=== PATIENT | male | born 1955 | race Asian ===

== ENCOUNTER 2017-04-19 14:47 | Inpatient (IN) | payer OTHER ==
[2017-04-19] VITALS (183 sets, daily range): BP systolic 160–168; BP diastolic 96–108; PULSE 95–99; TEMP 97.5; O2SAT 95–99
[~2017-04-19] VITALS: Ht 170.2 cm; Wt 81.8 kg
[2017-04-19] MEDS ORDERED: LEVEMIR FLEX100 U/ML SQ (15:20)
[2017-04-19] MEDS ORDERED: GLUCOPHAGE XR500 M1 PO (15:20)
[2017-04-19] MEDS ORDERED: GLUCOTROL XL5 MG/TAB PO (15:20)
[2017-04-19] MEDS ORDERED: BLOOD PRESSURE (15:21)
[2017-04-19 16:07] LABS: BASO # 0.1 (0.0-0.2); BASO % 0.4 % (0.0-2.0); EOS # 0.1 (0.0-0.7); EOS % 0.6 % (0-4.0); GRAN # 10.4 (1.4-6.5); GRAN % 77.6 % (42.2-75.2); HEMATOCRIT 44.8 % (42.0-52.0); LYMPH # 2.1 (1.2-3.4); LYMPH % 15.7 % (20.0-51.0); MEAN CELL VOLUME 81 fl (80.0-100.0); MEAN CORPUSCULAR HEMOGLOBIN 29 pg (27.0-31.0); MEAN CORPUSCULAR HGB CONC 36 g/dl (33.0-37.0); MEAN PLATELET VOLUME 11.2 fl (7.4-10.4); MONO # 0.7 (0.1-0.6); MONO % 5.3 % (1.7-9.3); PLATELET COUNT 247 K/mm3 (130-400); RED BLOOD COUNT 5.52 M/mm3 (4.20-5.60); REDCELL DISTRIBUTION WIDTH-CV 12.2 % (11.5-14.5); WHITE BLOOD COUNT 13.4 K/mm3 (4.8-10.8)
[2017-04-19 16:37] LABS: ADJUSTED CALCIUM 9.8 mg/dL (8.4-10.2); ALBUMIN 4.2 gm/dL (3.5-5.0); CREATININE, serum 0.71 mg/dL (0.66-1.25); POTASSIUM 4.5 mmol/L (3.4-5.0); TOTAL PROTEIN 7.4 gm/dL (6.4-8.2)
[2017-04-19 16:52] LABS: TROPONIN-I 8.02 ng/mL (0.000-0.034)
[2017-04-19 17:32] LABS: PROTHROMBIN TIME 10.5 SECONDS (9.7-12.8)
[2017-04-19 17:35] LABS: PARTIAL THROMBOPLASTIN TIME 33.5 SECONDS (26.0-37.0)
[2017-04-19] MEDS ORDERED: MICARDIS40 MG PO (18:39)
[2017-04-19] MEDS ORDERED: [UNRECOGNIZED DRUG - OTHER] PO (18:42)
[2017-04-19 23:44] LABS: PH 5 (5-8); SQUAMOUS EPITHELIAL None Seen /hpf; URINE APPEARANCE Hazy; URINE BACTERIA None Seen /hpf; URINE BILIRUBIN Negative (NEGATIVE); URINE BLOOD Negative (NEGATIVE); URINE COLOR Yellow; URINE GLUCOSE 3+ (NEGATIVE); URINE KETONE 1+ (NEGATIVE); URINE RBC 0-2 /hpf; URINE UROBILINOGEN Negative (NEGATIVE); URINE WBC 0-2 /hpf
[2017-04-20] VITALS (764 sets, daily range): BP systolic 122–138; BP diastolic 74–86; PULSE 67–80; TEMP 96.8–98; O2SAT 95–100
[2017-04-20 04:11] LABS: BASO # 0.1 (0.0-0.2); BASO % 0.7 % (0.0-2.0); EOS # 0.1 (0.0-0.7); EOS % 1.5 % (0-4.0); GRAN # 5.1 (1.4-6.5); GRAN % 60.2 % (42.2-75.2); LYMPH # 2.5 (1.2-3.4); LYMPH % 29.7 % (20.0-51.0); MEAN CELL VOLUME 82 fl (80.0-100.0); MEAN CORPUSCULAR HGB CONC 36 g/dl (33.0-37.0); MEAN PLATELET VOLUME 10.7 fl (7.4-10.4); MONO # 0.6 (0.1-0.6); MONO % 7.5 % (1.7-9.3); PLATELET COUNT 186 K/mm3 (130-400); RED BLOOD COUNT 4.32 M/mm3 (4.20-5.60); REDCELL DISTRIBUTION WIDTH-CV 12.4 % (11.5-14.5); WHITE BLOOD COUNT 8.4 K/mm3 (4.8-10.8)
[2017-04-20 04:12] LABS: HEMATOCRIT 35.4 % (42.0-52.0); HEMOGLOBIN 12.7 g/dl (13.5-18.0); MEAN CORPUSCULAR HEMOGLOBIN 29 pg (27.0-31.0)
[2017-04-20 04:17] LABS: INR 1.4 (0.8-3.0); PROTHROMBIN TIME 15.5 SECONDS (9.7-12.8)
[2017-04-20 04:21] LABS: ADJUSTED CALCIUM 8.8 mg/dL (8.4-10.2); ALBUMIN 2.7 gm/dL (3.5-5.0); BILIRUBIN,TOTAL 0.6 mg/dL (0.0-1.0); CALCIUM 7.8 mg/dL (8.4-10.2); CREATININE, serum 0.6 mg/dL (0.66-1.25); POTASSIUM 3.3 mmol/L (3.4-5.0); TOTAL PROTEIN 5.3 gm/dL (6.4-8.2)
[2017-04-20 04:40] LABS: TROPONIN-I 9.29 ng/mL (0.000-0.034)
[2017-04-20 05:05] LABS: PARTIAL THROMBOPLASTIN TIME > 400.0 SECONDS (26.0-37.0)
[2017-04-20 13:00] LABS: CKMB-SO 14.5 ng/mL (0.0-7.2)
[2017-04-21] VITALS (151 sets, daily range): BP systolic 131–137; BP diastolic 78–97; PULSE 68–77; TEMP 97–98.1; O2SAT 95–100
[2017-04-21 06:23] LABS: HEMATOCRIT 42.8 % (42.0-52.0); MEAN CELL VOLUME 83 fl (80.0-100.0); MEAN CORPUSCULAR HEMOGLOBIN 29 pg (27.0-31.0); MEAN CORPUSCULAR HGB CONC 35 g/dl (33.0-37.0); MEAN PLATELET VOLUME 10.6 fl (7.4-10.4); PLATELET COUNT 207 K/mm3 (130-400); RED BLOOD COUNT 5.19 M/mm3 (4.20-5.60); REDCELL DISTRIBUTION WIDTH-CV 12.4 % (11.5-14.5)
[2017-04-21 06:25] LABS: HEMOGLOBIN 14.9 g/dl (13.5-18.0)
[2017-04-21 06:38] LABS: CALCIUM 9.3 mg/dL (8.4-10.2); CREATININE, serum 0.66 mg/dL (0.66-1.25); POTASSIUM 3.7 mmol/L (3.4-5.0)
[2017-04-21] MEDS ORDERED: NORVASC 5MG5 MG/TAB PO (10:26)
[2017-04-21] MEDS ORDERED: COREG12.5 MG PO (10:26)
[2017-04-21] MEDS ORDERED: ASPIRIN 81M81 MG/TA2 PO (10:28)
[2017-04-21] MEDS ORDERED: PLAVIX 75MG TAB75 MG PO (10:30)
[2017-04-21] MEDS ORDERED: LIPITOR 40MG TA40 MG PO (10:30)
[2017-04-21] MEDS ORDERED: GLUCOPHAGE1000 MG PO (10:30)
[2017-04-21] MEDS ORDERED: MICARDIS40 MG PO (10:35)
== END 2017-04-21 12:49 | disposition home or self-care (01) | DRG 247 ==
LOC: COL.ER 14:47 → ICU 17:21
PROVIDERS: Emergency Medicine; Family Medicine; Internal Medicine; Internal Medicine Cardiovascular Disease
PROC: 027034Z Dilation of Coronary Artery, One Artery with Drug-eluting Intraluminal Device, Percutaneous Approach (ICD-10-PCS; principal; 2017-04-20)
PROC: B2111ZZ Fluoroscopy of Multiple Coronary Arteries using Low Osmolar Contrast (ICD-10-PCS; 2017-04-20)
PROC: 4A023N6 Measurement of Cardiac Sampling and Pressure, Right Heart, Percutaneous Approach (ICD-10-PCS; 2017-04-20)
DX: I21.4 Non-ST elevation (NSTEMI) myocardial infarction (principal); E87.1 Hypo-osmolality and hyponatremia; E86.1 Hypovolemia; E11.9 Type 2 diabetes mellitus without complications; I10 Essential (primary) hypertension; E78.5 Hyperlipidemia, unspecified; Z79.4 Long term (current) use of insulin
CPT/HCPCS: 99223-AI; 99233-AI; 99239; C1725; C1769; C1874; C1887; C9600; J0583; J1644; J1650; J1815; J2250; J3010; J7030

== ENCOUNTER 2019-08-03 23:48 | Emergency (ER) | payer MEDICAID ==
[~2019-08-03] VITALS: Ht 170.2 cm; Wt 86.4 kg
[~2019-08-03 23:48] MED LIST: ASPIRIN 81M81 MG/TA2 PO; BLOOD PRESSURE; COREG12.5 MG PO; GLUCOPHAGE XR500 M1 PO; GLUCOPHAGE1000 MG PO; GLUCOTROL XL5 MG/TAB PO; LEVEMIR FLEX100 U/ML SQ; LIPITOR 40MG TA40 MG PO; MICARDIS40 MG PO; NORVASC 5MG5 MG/TAB PO; PLAVIX 75MG TAB75 MG PO; [UNRECOGNIZED DRUG - OTHER] PO
[2019-08-04 00:06] LABS: ARTERIAL BLD GAS O2 SATURATION 92.3 % (92-100); ARTERIAL BLD GAS TCO2 CT 18.7; ARTERIAL BLOOD GAS BASE EXCESS -7.6 (-2-2); ARTERIAL BLOOD GAS HCO3 17.6 meq/L (22-26); ARTERIAL BLOOD GAS PCO2 35.5 mmHg (35-45); ARTERIAL BLOOD GAS PO2 69.3 mmHg (80-100); ARTERIAL BLOOD GAS pH 7.31 (7.35-7.45)
[2019-08-04 00:06] LABS: BASO # 0.1 (0.0-0.2); BASO % 0.5 % (0.0-2.0); EOS # 0.3 (0.0-0.7); EOS % 1.5 % (0-4.0); GRAN # 16.2 (1.4-6.5); GRAN % 75.7 % (42.2-75.2); HEMATOCRIT 48.6 % (42.0-52.0); HEMOGLOBIN 16.9 g/dl (13.5-18.0); LYMPH % 18.7 % (20.0-51.0); MEAN CELL VOLUME 83 fl (80.0-100.0); MEAN CORPUSCULAR HEMOGLOBIN 29 pg (27.0-31.0); MEAN CORPUSCULAR HGB CONC 35 g/dl (33.0-37.0); MEAN PLATELET VOLUME 10.7 fl (7.4-10.4); MONO # 0.7 (0.1-0.6); MONO % 3.1 % (1.7-9.3); PLATELET COUNT 306 K/mm3 (130-400); RED BLOOD COUNT 5.83 M/mm3 (4.20-5.60); REDCELL DISTRIBUTION WIDTH-CV 12.8 % (11.5-14.5)
[2019-08-04 00:10] LABS: INR 0.9 (0.8-3.0); PROTHROMBIN TIME 9.9 SECONDS (9.7-12.8)
[2019-08-04 00:12] LABS: PARTIAL THROMBOPLASTIN TIME 33.5 SECONDS (26.0-37.0)
[2019-08-04 00:15] LABS: ALBUMIN 4.2 gm/dL (3.5-5.0); BILIRUBIN,TOTAL 0.3 mg/dL (0.0-1.0); CALCIUM 9.6 mg/dL (8.4-10.2); CREATININE, serum 0.87 (0.66-1.25); POTASSIUM 4.3 mmol/L (3.4-5.0); TOTAL PROTEIN 7.7 gm/dL (6.4-8.2)
[2019-08-04 00:25] LABS: TROPONIN-I 0.024 ng/mL (0.000-0.035)
[2019-08-04 01:10] VITALS: BP 154/91; PULSE 84
== END 2019-08-04 01:10 | disposition short-term general hospital (02) ==
LOC: COL.ER 23:48
PROVIDERS: Emergency Medicine
DX: I21.3 ST elevation (STEMI) myocardial infarction of unspecified site (principal); E11.9 Type 2 diabetes mellitus without complications; I10 Essential (primary) hypertension; E78.5 Hyperlipidemia, unspecified; Z98.890 Other specified postprocedural states; Z95.5 Presence of coronary angioplasty implant and graft; Z79.82 Long term (current) use of aspirin; Z79.4 Long term (current) use of insulin
CPT/HCPCS: J1644; J3101; J7030

== ENCOUNTER 2019-08-28 10:32 | Inpatient (IN) | payer MEDICARE ==
[~2019-08-28] VITALS: Ht 170.2 cm; Wt 86.9 kg
[2019-08-28] VITALS (394 sets, daily range): BP systolic 128–164; BP diastolic 72–95; PULSE 74–87; TEMP 97.8–98.2; O2SAT 90–99
[2019-08-28 10:56] LABS: BASO # 0.1 (0.0-0.2); BASO % 0.4 % (0.0-2.0); EOS # 0.2 (0.0-0.7); EOS % 1.6 % (0-4.0); HEMATOCRIT 41.2 % (42.0-52.0); HEMOGLOBIN 13.8 g/dl (13.5-18.0); LYMPH # 1.5 (1.2-3.4); LYMPH % 9.8 % (20.0-51.0); MEAN CELL VOLUME 85 fl (80.0-100.0); MEAN CORPUSCULAR HEMOGLOBIN 28 pg (27.0-31.0); MEAN CORPUSCULAR HGB CONC 34 g/dl (33.0-37.0); MEAN PLATELET VOLUME 10.9 fl (7.4-10.4); MONO # 0.6 (0.1-0.6); MONO % 3.7 % (1.7-9.3); PLATELET COUNT 243 K/mm3 (130-400); RED BLOOD COUNT 4.87 M/mm3 (4.20-5.60); REDCELL DISTRIBUTION WIDTH-CV 12.8 % (11.5-14.5)
[2019-08-28 10:57] LABS: PROTHROMBIN TIME 11.4 SECONDS (9.7-12.8)
[2019-08-28 11:00] LABS: PARTIAL THROMBOPLASTIN TIME 34.5 SECONDS (26.0-37.0)
[2019-08-28 11:03] LABS: ALBUMIN 3.9 gm/dL (3.5-5.0); BILIRUBIN,TOTAL 0.5 mg/dL (0.0-1.0); CALCIUM 9.2 mg/dL (8.4-10.2); CREATININE, serum 0.9 (0.66-1.25); POTASSIUM 4.7 mmol/L (3.4-5.0); TOTAL PROTEIN 7.3 gm/dL (6.4-8.2)
[2019-08-28 11:18] LABS: TROPONIN-I 0.104 ng/mL (0.000-0.035)
[2019-08-28] MEDS ORDERED: LASIX 40MG TABL40 MG PO (13:34)
[2019-08-28] MEDS ORDERED: ATROVENT I0.2 MG/1 M IH (13:34)
[2019-08-28] MEDS ORDERED: IMDUR 30MG30 MG/TAB PO (13:35)
[2019-08-28] MEDS ORDERED: LIPITOR 80MG80 MG PO (13:36)
[2019-08-28] MEDS ORDERED: GLUCOPHAGE1000 MG PO (13:38)
[2019-08-28] MEDS ORDERED: MICARDIS80 MG PO (13:41)
[2019-08-29] VITALS (483 sets, daily range): BP systolic 108–178; BP diastolic 58–82; PULSE 64–85; TEMP 97.4–98.3; O2SAT 92–100
[2019-08-29 06:44] LABS: ALBUMIN 3.5 gm/dL (3.5-5.0); BILIRUBIN,TOTAL 0.5 mg/dL (0.0-1.0); CALCIUM 9.7 mg/dL (8.4-10.2); CREATININE, serum 0.99 (0.66-1.25); POTASSIUM 4.4 mmol/L (3.4-5.0); TOTAL PROTEIN 6.7 gm/dL (6.4-8.2)
[2019-08-29 07:01] LABS: BASO # 0.1 (0.0-0.2); BASO % 0.5 % (0.0-2.0); EOS # 0.2 (0.0-0.7); EOS % 1.9 % (0-4.0); GRAN # 8.5 (1.4-6.5); GRAN % 77.2 % (42.2-75.2); HEMATOCRIT 39.1 % (42.0-52.0); HEMOGLOBIN 12.9 g/dl (13.5-18.0); LYMPH # 1.4 (1.2-3.4); LYMPH % 12.9 % (20.0-51.0); MEAN CELL VOLUME 85 fl (80.0-100.0); MEAN CORPUSCULAR HEMOGLOBIN 28 pg (27.0-31.0); MEAN CORPUSCULAR HGB CONC 33 g/dl (33.0-37.0); MEAN PLATELET VOLUME 10.9 fl (7.4-10.4); MONO # 0.8 (0.1-0.6); MONO % 7.1 % (1.7-9.3); PLATELET COUNT 225 K/mm3 (130-400); RED BLOOD COUNT 4.61 M/mm3 (4.20-5.60); REDCELL DISTRIBUTION WIDTH-CV 12.9 % (11.5-14.5)
[2019-08-30 04:35] VITALS: BP 139/77; PULSE 79; TEMP 99.3
[2019-08-30 07:38] VITALS: BP 142/84; PULSE 69; TEMP 98.2
[2019-08-30 07:41] LABS: ALBUMIN 3.5 gm/dL (3.5-5.0); BILIRUBIN,TOTAL 0.4 mg/dL (0.0-1.0); CALCIUM 9.4 mg/dL (8.4-10.2); CREATININE, serum 1.06 (0.66-1.25); MAGNESIUM 1.9 mg/dL (1.6-2.3); POTASSIUM 3.9 mmol/L (3.4-5.0); TOTAL PROTEIN 6.6 gm/dL (6.4-8.2)
[2019-08-30 07:46] LABS: BASO # 0.1 (0.0-0.2); BASO % 0.5 % (0.0-2.0); EOS # 0.3 (0.0-0.7); EOS % 2.9 % (0-4.0); GRAN # 7.5 (1.4-6.5); GRAN % 71.4 % (42.2-75.2); HEMATOCRIT 37.6 % (42.0-52.0); HEMOGLOBIN 12.7 g/dl (13.5-18.0); LYMPH # 1.8 (1.2-3.4); LYMPH % 17.3 % (20.0-51.0); MEAN CELL VOLUME 85 fl (80.0-100.0); MEAN CORPUSCULAR HEMOGLOBIN 29 pg (27.0-31.0); MEAN CORPUSCULAR HGB CONC 34 g/dl (33.0-37.0); MEAN PLATELET VOLUME 11.2 fl (7.4-10.4); MONO # 0.8 (0.1-0.6); MONO % 7.4 % (1.7-9.3); PLATELET COUNT 213 K/mm3 (130-400); RED BLOOD COUNT 4.45 M/mm3 (4.20-5.60); REDCELL DISTRIBUTION WIDTH-CV 12.7 % (11.5-14.5)
[2019-08-30 12:01] VITALS: BP 123/66; PULSE 78; TEMP 98
[2019-08-30] MEDS ORDERED: ALDACTONE 25MG25 M1 PO (13:17)
[2019-08-30] MEDS ORDERED: IMDUR 60MG60 MG/TAB PO (13:17)
[2019-08-30] MEDS ORDERED: COREG 6.256.25 MG/TA PO (13:17)
[2019-08-30] MEDS ORDERED: DEMADEX 20MG20 M1 PO (13:18)
== END 2019-08-30 16:00 | disposition home or self-care (01) | DRG 282 ==
LOC: COL.ER 10:32 → MEDICAL 12:40 → ICU 12:40 → MEDICAL 08-29 17:20
PROVIDERS: Emergency Medicine; ADMIT Student in an Organized Health Care Education/Training Program
PROC: 4A023N7 Measurement of Cardiac Sampling and Pressure, Left Heart, Percutaneous Approach (ICD-10-PCS; principal; 2019-08-28)
DX: I11.0 Hypertensive heart disease with heart failure (principal); I21.3 ST elevation (STEMI) myocardial infarction of unspecified site; I50.23 Acute on chronic systolic (congestive) heart failure; I25.110 Atherosclerotic heart disease of native coronary artery with unstable angina pectoris; E11.9 Type 2 diabetes mellitus without complications; E78.00 Pure hypercholesterolemia, unspecified; D72.829 Elevated white blood cell count, unspecified; I25.5 Ischemic cardiomyopathy; Z79.4 Long term (current) use of insulin; Z95.820 Peripheral vascular angioplasty status with implants and grafts; Z79.82 Long term (current) use of aspirin; I25.2 Old myocardial infarction
CPT/HCPCS: 99239; J1650; J1815; J1940; J2250; J3010

== ENCOUNTER → 2022-11-08 | Outpatient (CLI) | payer MEDICARE ==
[~2022-11-08] MED LIST changes: +ALDACTONE 25MG25 M1 PO; +ATROVENT I0.2 MG/1 M IH; +COREG 6.256.25 MG/TA PO; +DEMADEX 20MG20 M1 PO; +ENTRESTO 24 MG1 EACH PO; +GLUCOPHAGE500 MG/TAB PO; +IMDUR 30MG30 MG/TAB PO; +IMDUR 60MG60 MG/TAB PO; +LASIX 40MG TABL40 MG PO; +LASIX 40MG40 MG/4 ML IV; +LIPITOR 80MG80 MG PO; +METAMUCIL3.4 GM/DOS PO; +MICARDIS80 MG PO; +NITROSTAT0.4 MG/TAB SL; +NOVLOG SQ
== END ==
LOC: COL.RAD 15:00
DX: E11.621 Type 2 diabetes mellitus with foot ulcer (principal)